=== PATIENT | female | born 1980 | race African-American/Black ===

== ENCOUNTER 2019-07-15 07:22 | Inpatient (IN) | payer BC ==
[2019-07-15] MEDS ORDERED: MORPHINE SULFATE 10 MG/ML INJ IV ONE ×2 (07:40→09:48)
[2019-07-15] MEDS ORDERED: NORMAL SALINE 1000 ML 1,000 ML IV ONE (07:40)
[2019-07-15 08:08] LABS: ABSOLUTE LYMPHOCYTES (AUTO) 0.8 10^3/uL (0.5-4.7); ABSOLUTE MONOCYTES (AUTO) 0.3 10^3/uL (0.1-1.4); ABSOLUTE NEUT (AUTO) 5.7 10^3/uL (1.7-8.2); BASOPHILS % (AUTO) 0.5 % (0-2); EOSINOPHILS % (AUTO) 0.5 % (0-6); HEMATOCRIT 40.1 % (36.0-47.0); HEMOGLOBIN 13.4 g/dL (12.0-15.5); LYMPHOCYTES % (AUTO) 11.8 % (13-45); MEAN CORPUSCULAR HEMOGLOBIN 26.7 pg (27.0-33.4); MEAN CORPUSCULAR HGB CONC 33.4 g/dL (32.0-36.0); MEAN CORPUSCULAR VOLUME 80 fl (80-97); MONOCYTES % (AUTO) 4.9 % (3-13); PLATELET COUNT 309 10^3/uL (150-450); RED BLOOD COUNT 5.02 10^6/uL (3.72-5.28); RED CELL DISTRIBUTION WIDTH 16.7 % (11.5-14.0); SEGMENTED NEUTROPHILS % (AUTO) 82.3 % (42-78); TOTAL CELLS COUNTED % (AUTO) 100 %
[2019-07-15 08:10] LABS: ALBUMIN 4.3 g/dL (3.5-5.0); ALKALINE PHOSPHATASE 123 U/L (38-126); ANION GAP 6 (5-19); APPEARANCE,URINE CLEAR; ASPARTATE AMINO TRANSFERASE 615 U/L (14-36); BILIRUBIN,DIRECT 1.7 mg/dL (0.0-0.4); BILIRUBIN,TOTAL 2.5 mg/dL (0.2-1.3); BILIRUBIN,URINE NEGATIVE (NEGATIVE); BLOOD UREA NITROGEN 11 mg/dL (7-20); CALCIUM 9.6 mg/dL (8.4-10.2); CARBON DIOXIDE 29 mmol/L (22-30); CHLORIDE 101 mmol/L (98-107); COLOR,URINE YELLOW; GLUCOSE 216 mg/dL (75-110); GLUCOSE, URINE 50 mg/dL (NEGATIVE); KETONES,URINE NEGATIVE (NEGATIVE); POTASSIUM 4.2 mmol/L (3.6-5.0); PROTEIN,URINE NEGATIVE (NEGATIVE); TOTAL PROTEIN 7.7 g/dL (6.3-8.2); URINE SPECIFIC GRAVITY 1.009; UROBILINOGEN,URINE NEGATIVE mg/dL (<2.0)
--- NOTE | 2019-07-15 08:17 | EKG REPORT ---
SEVERITY:- ABNORMAL ECG - SINUS TACHYCARDIA LEFT VENTRICULAR HYPERTROPHY : Confirmed by: Angelina Sanabria MD 15-Jul-2019 08:16:55
--- NOTE | 2019-07-15 09:34 | RADIOLOGY REPORT (SQ) ---
EXAM DESCRIPTION: CT ABD/PELVIS WITH IV ONLY IMAGES COMPLETED DATE/TIME: 07/15/2019 9:13 am REASON FOR STUDY: severe abd pain COMPARISON: None. TECHNIQUE: CT scan of the abdomen and pelvis performed using helical scanning technique with dynamic intravenous contrast injection. No oral contrast. Images reviewed with lung, soft tissue, and bone windows. Reconstructed coronal and sagittal MPR images reviewed. Delayed images for evaluation of the urinary system also acquired. All images stored on PACS. All CT scanners at this facility use dose modulation, iterative reconstruction, and/or weight based d osing when appropriate to reduce radiation dose to as low as reasonably achievable (ALARA). [facility]: Dose Right [facility]: CareDose [facility]: Dose Right [facility]: Teradose 4D [facility]: Who Can Fix My Car CONTRAST TYPE AND DOSE: contrast/concentration: Isovue 350.00 mg/ml; Total Contrast Delivered: 100.0 ml; Total Saline Delivered: 64.3 ml RENAL FUNCTION: GFR > 60. RADIATION DOSE: CT Rad equipment meets quality standard of care and radiation dose reduction techniq ues were employed. CTDIvol: 19.2 - 21.1 mGy. DLP: 2379 mGy-cm.. LIMITATIONS: None. FINDINGS: LOWER CHEST: Hiatal hernia. LIVER: Normal size. No masses. No dilated ducts. SPLEEN: Normal size. No focal lesions. PANCREAS: Subtle stranding of peripancreatic fat. No mass or ductal dilatation identified. GALLBLADDER: No identified stones by CT criteria. No inflammatory changes to suggest cholecystitis. ADRENAL GLANDS: No significant masses or asymmetry. RIGHT KIDNEY AND URETER: No solid masses. No significant calcifications. No hydronephrosis or hyd roureter. LEFT KIDNEY AND URETER: No solid masses. No significant calcifications. No hydronephrosis or hydr oureter. AORTA AND VESSELS: No aneurysm. No dissection. Renal arteries, SMA, celiac without stenosis. RETROPERITONEUM: No retroperitoneal adenopathy, hemorrhage or masses. BOWEL AND PERITONEAL CAVITY: No masses or inflammatory changes. No free fluid or peritoneal masses. APPENDIX: Normal. PELVIS: No mass. No free fluid. Normal bladder. ABDOMINAL WALL: Small fat containing umbilical hernia. BONES: No significant or acute findings. OTHER: No other significant finding. IMPRESSION: Acute pancreatitis. Correlation with serum chemistries is recommended. TECHNICAL DOCUMENTATION: JOB ID: [id number] Quality ID # [id number]: Final reports with documentation of one or more dose reduction techniques (e.g., Au tomated exposure control, adjustment of the mA and/or kV according to patient size, use of iterative reconstruction technique) 2010 [employer]- All Rights Reserved Reading location - IP/workstation name: [email or web address]
[2019-07-15] MEDS ORDERED: SUCCINYLCHOLINE CHLORIDE INJ 200 MG/10 ML VIAL ONE (09:49)
[2019-07-15] MEDS ORDERED: GLYCOPYRROLATE 1 MG/5 ML VIAL ONE (09:49)
[2019-07-15] MEDS ORDERED: ROCURONIUM BROMIDE INJ 50 MG/5 ML VIAL IV ONE (09:49)
[2019-07-15] MEDS ORDERED: NEOSTIGMINE METHYLSULFATE 10 MG/10 ML VIAL ONE (09:49)
--- NOTE | 2019-07-15 09:57 | ER Document Report ---
ED General - General Chief Complaint: Nausea/Vomiting Stated Complaint: NAUSEA/VOMTING Time Seen by Provider: 07/15/19 07:35 Primary Care Provider: KRYSTEL LION PA-C [Primary Care Provider] - Follow up as needed TRAVEL OUTSIDE OF THE [place] IN LAST 30 DAYS: No - HPI Notes: Patient presents with severe epigastric pain. She states this started yesterday. It started suddenly. This progressed to become worse. It is severe and radiates to her back. Has a burning sensation. She is also multiple episodes of vomiting. She does feels mildly short of breath. The pain also radiates up into her chest. The pain is become constant. No diarrhea. No problems with urination. She denies alcohol use. No new medications. - Related Data Allergies/Adverse Reactions: No Known Allergies Allergy (Verified 11/13/14 23:01) Past Medical History - General Information source: Patient - Social History Smoking Status: Never Smoker Frequency of alcohol use: None Drug Abuse: None Family History: Reviewed & Not Pertinent Patient has homicidal ideation: No Past Surgical History: Reports: Hx Orthopedic Surgery - bilateral hips, carpel tunnel, Hx Tonsillectomy - Immunizations Hx Diphtheria, Pertussis, Tetanus Vaccination: Yes Review of Systems - Review of Systems Constitutional: denies: Chills, Fever Cardiovascular: Chest pain. denies: Palpitations Respiratory: Short of breath. denies: Cough -: Yes All other systems reviewed and negative Physical Exam - Vital signs Vitals: Temp 98.2 F 07/15/19 07:40 Interpretation: Normal - General General appearance: Alert, Other - Appears uncomfortable and in pain - HEENT Head: Normocephalic, Atraumatic Eyes: Normal Pupils: PERRL - Respiratory Respiratory status: No respiratory distress Chest status: Nontender Breath sounds: Normal Chest palpation: Normal - Cardiovascular Rhythm: Tachycardia Heart sounds: Normal auscultation Murmur: No - Abdominal Inspection: Obese Distension: No distension Bowel sounds: Hypoactive Tenderness: Tender - Epigastric without rebound or guarding Organomegaly: No organomegaly - Back Back: Normal, Nontender - Extremities General upper extremity: Normal inspection, Nontender, Normal color, Normal ROM, Normal temperature General lower extremity: Normal inspection, Nontender, Normal color, Normal ROM, Normal temperature, Normal weight bearing. No: Elise's sign - Neurological Neuro grossly intact: Yes Cognition: Normal Orientation: AAOx4 Tarsha Coma Scale Eye Opening: Spontaneous [place] Coma Scale Verbal: Oriented T[place]ha Coma Scale Motor: Obeys Commands Tarsha Coma Scale Total: 15 Speech: Normal Motor strength normal: LUE, RUE, LLE, RLE Sensory: Normal - Psychological Associated symptoms: Normal affect, Normal mood - Skin Skin Temperature: Warm Skin Moisture: Dry Skin Color: Normal Course - Re-evaluation Re-evalutation: 07/15/19 09:54 Patient presents with severe epigastric pain and has pancreatitis by laboratory and CT exam. She will be admitted for further evaluation by hospitalist. - Vital Signs Vital signs: Temp Pulse Resp BP Pulse Ox 98.2 F 07/15/19 07:40 - Laboratory Result Diagrams: 07/15/19 07:35 07/15/19 07:35 Laboratory results interpreted by me: 07/15/19 07/15/19 07/15/19 07:35 07:35 07:35 MCH 26.7 L RDW 16.7 H Lymph % (Auto) 11.8 L Seg Neutrophils % 82.3 H Sodium 136.1 L Glucose 216 H Total Bilirubin 2.5 H Direct Bilirubin 1.7 H AST 615 H ALT 532 H Lipase 80038.7 H Urine Glucose (UA) 50 H - Diagnostic Test Radiology reviewed: Image reviewed, Reports reviewed - EKG Interpretation by Me EKG shows normal: Sinus rhythm Rate: Normal - 101 Rhythm: NSR [place]/QRS: No: Right axis deviation, Left axis deviation Discharge - Discharge Clinical Impression: Pancreatitis Condition: Serious Disposition: ADMITTED INPATIENT Admitting Provider: Nahomy (Hospitalist) Unit Admitted: Medical Floor Referrals: KRYSTLE LION PA-C [Primary Care Provider] - Follow up as needed
[2019-07-15] MEDS ORDERED: TEMAZEPAM 7.5 MG CAPSULE PO PRN (10:23)
[2019-07-15] MEDS ORDERED: IPRATROPIUM/ALBUTEROL 0.5-2.5 MG/3 ML AMPUL NEB PRN (10:23)
[2019-07-15] MEDS ORDERED: ACETAMINOPHEN 325 MG TABLET PO PRN (10:23)
--- NOTE | 2019-07-15 10:34 | PDOC H&P ---
History of Present Illness Admission Date/PCP: KRYSTLE LION PA-C Patient complains of: Abdominal pain, nausea and vomiting History of Present Illness: MORRIS JAIME is a 38 year old female Who presents with acute onset of abdominal pain associated with nausea and vomiting. This pain started yesterday. She denied any prior episode of such pain. She denies any dysuria frequency fever diarrhea or any other pertinent symptoms. Patient denies any alcohol use, drug use and she denies any prior episodes of pancreatitis. The emergency room she was found to have a lipase of 24,000. Is on no medications. She is morbidly obese but otherwise denies any other medical history. CT scan of the abdomen done reveals findings consistent with pancreatitis. She ultimately had an abdominal sonogram done and at this is consistent with cholelithiasis. Past Medical History Medical History: None Past Surgical History Past Surgical History: Reports: Orthopedic Surgery - bilateral hips, carpel tunnel, Tonsillectomy Social History Information Source: Patient Smoking Status: Never Smoker - Advance Directive Resuscitation Status: Full Code Family History Family History: Reviewed & Not Pertinent Parental Family History Reviewed: Yes Children Family History Reviewed: Yes Sibling(s) Family History Reviewed.: Yes Medication/Allergy Home Medications: No Home Medications 11/13/14 Allergies/Adverse Reactions: amoxicillin Allergy (Verified 07/15/19 16:35) Penicillins Allergy (Verified 07/15/19 16:35) Review of Systems All systems: reviewed and no additional remarkable complaints except as stated Gastrointestinal: PRESENT: abdominal pain Physical Exam Vital Signs: Temp Pulse Resp BP Pulse Ox 98.2 F 07/15/19 07:40 Intake & Output 07/14/19 07/15/19 07/16/19 06:59 06:59 06:59 Intake Total 1000 Balance 1000 Weight 172.365 kg General appearance: PRESENT: no acute distress, morbidly obese, well-developed, well-nourished Head exam: PRESENT: atraumatic, normocephalic Eye exam: PRESENT: conjunctiva pink, EOMI, PERRLA. ABSENT: scleral icterus Ear exam: PRESENT: normal external ear exam Mouth exam: PRESENT: moist, tongue midline Neck exam: ABSENT: carotid bruit, JVD, lymphadenopathy, thyromegaly Respiratory exam: PRESENT: clear to auscultation aryan. ABSENT: rales, rhonchi, wheezes Cardiovascular exam: PRESENT: RRR, +S1, +S2. ABSENT: diastolic murmur, rubs, systolic murmur Pulses: PRESENT: normal dorsalis pedis pul Vascular exam: PRESENT: normal capillary refill GI/Abdominal exam: PRESENT: normal bowel sounds, soft, tenderness. ABSENT: distended, guarding, mass, organolmegaly, rebound Rectal exam: PRESENT: deferred Extremities exam: PRESENT: full ROM. ABSENT: calf tenderness, clubbing, pedal edema Neurological exam: PRESENT: alert, awake, oriented to person, oriented to place, oriented to time, oriented to situation, CN II-XII grossly intact. ABSENT: motor sensory deficit Psychiatric exam: PRESENT: appropriate affect, normal mood. ABSENT: homicidal ideation, suicidal ideation Skin exam: PRESENT: dry, intact, warm. ABSENT: cyanosis, rash Results Laboratory Results: 07/15/19 07:35 07/15/19 07:35 07/15/19 07/15/19 07/15/19 07:35 07:35 07:35 WBC 7.0 RBC 5.02 Hgb 13.4 Hct 40.1 MCV 80 MCH 26.7 L MCHC 33.4 RDW 16.7 H Plt Count 309 Seg Neutrophils % 82.3 H Sodium 136.1 L Potassium 4.2 Chloride 101 Carbon Dioxide 29 Anion Gap 6 BUN 11 Creatinine 0.85 Est GFR ( Amer) > 60 Glucose 216 H Calcium 9.6 Total Bilirubin 2.5 H AST 615 H Alkaline Phosphatase 123 Total Protein 7.7 Albumin 4.3 Lipase 12475.7 H Urine Color YELLOW Urine Appearance CLEAR Urine pH 8.0 Ur Specific [place] 1.009 Urine Protein NEGATIVE Urine Glucose (UA) 50 H Urine Ketones NEGATIVE Urine Blood NEGATIVE Urine RBC (Auto) 1 07/15/19 07:35 Troponin I < 0.012 Impressions: Abdomen/Pelvis CT 07/15/19 07:39 IMPRESSION: Acute pancreatitis. Correlation with serum chemistries is recommended. Assessment and Plan - Diagnosis (1) Acute gallstone pancreatitis Is this a current diagnosis for this admission?: Yes Plan: Patient does have cholelithiasis on sonogram. This may be the cause of pancre atitis. She likely will need an MRI for further evaluation. I will also consult surgery. Patient will be kept n.p.o. She will be placed on IV fluids as well as PPI intravenously. Will monitor for follow her labs (2) Hyperglycemia Is this a current diagnosis for this admission?: Yes Plan: Denies prior history of diabetes although her blood sugar was elevated at 200. Will check hemoglobin A1c (3) Morbid obesity with BMI of 50.0-59.9, adult Is this a current diagnosis for this admission?: Yes Plan: She has been advised on the need to lose weight - Time Time Spent with patient: 25-34 minutes Anticipated discharge: Home - Inpatient Certification Based on my medical assessment, after consideration of the patient's comorbidities, presenting symptoms, or acuity I expect that the services needed warrant INPATIENT care.: Yes Medical Necessity: Risk of Complication if Not Cared For in Hospital, Risk of Diagnosis Which Will Require Inpatient Eval/Care/Monitoring
--- NOTE | 2019-07-15 11:07 | RADIOLOGY REPORT (SQ) ---
EXAM DESCRIPTION: U/S ABDOMEN LIMITED W/O DOP IMAGES COMPLETED DATE/TIME: 07/15/2019 10:45 am REASON FOR STUDY: epi jerry/pancreatitis COMPARISON: None. TECHNIQUE: Dynamic and static grayscale images acquired of the abdomen and recorded on PACS. Additio nal selected color Doppler and spectral images recorded. LIMITATIONS: Limited visualization. Poor acoustical window FINDINGS: PANCREAS: No masses. Visualized pancreatic duct normal caliber. LIVER: Normal size Mild fatty infiltration. No focal masses. LIVER VASCULATURE: Normal directional flow of the main portal vein and hepatic veins. GALLBLADDER: Gallstone(s). No pericholecystic fluid. No wall thickening. ULTRASOUND-DETECTED FERRARO'S SIGN: Negative. INTRAHEPATIC DUCTS AND COMMON DUCT: CBD and intrahepatic ducts normal caliber. No filling defects. INFERIOR VENA CAVA: Normal flow. AORTA: No aneurysm. RIGHT KIDNEY: Normal size. Normal echogenicity. No solid or suspicious masses. No hydronephros is. No calcifications. PERITONEAL AND RIGHT PLEURAL SPACE: No ascites or effusions. OTHER: No other significant findings. IMPRESSION: Cholelithiasis. No evidence of acute cholecystitis. TECHNICAL DOCUMENTATION: JOB ID: [id number] 2010 [employer]- All Rights Reserved Reading location - IP/workstation name: [email or web address]
[2019-07-15] MEDS: OXYCODONE-ACETAMINOPHEN 5-325 MG TABLET PO PRN ×2 (11:09→19:54)
[2019-07-15] MEDS: NORMAL SALINE 1000 ML 1,000 ML IV PRN ×2 (11:10→19:59)
[2019-07-15] MEDS: PANTOPRAZOLE SODIUM 40 MG VIAL IV SCH (11:10)
[2019-07-15 11:12] LABS: URINE AMPHETAMINES SCREEN NEGATIVE; URINE BARBITURATES SCREEN NEGATIVE; URINE BENZODIAZEPINES SCREEN NEGATIVE; URINE COCAINE SCREEN NEGATIVE; URINE MARIJUANA (THC) SCREEN NEGATIVE; URINE METHADONE SCREEN NEGATIVE; URINE PHENCYCLIDINE SCREEN NEGATIVE
[2019-07-15] MEDS: ONDANSETRON HCL INJ/PF 4 MG/2 ML SDV IV PRN ×3 (12:49→21:04)
--- NOTE | 2019-07-15 20:06 | RADIOLOGY REPORT (SQ) ---
EXAM DESCRIPTION: MRI ABDOMEN WITHOUT IMAGES COMPLETED DATE/TIME: 07/15/2019 6:42 pm REASON FOR STUDY: Abdominal pain, Gallstone Pancreatitis COMPARISON: Abdominal ultrasound same date. CT abdomen and pelvis same date. TECHNIQUE: Noncontrast MRCP. Source and MIP images reviewed. LIMITATIONS: None. FINDINGS: GALLBLADDER: The gallbladder has normal contour and appearance. There are gallstones with in the gallbladder lumen. No gallbladder wall thickening or pericholecystic fluid. INTRAHEPATIC DUCTS: Nondilated. EXTRAHEPATIC DUCTS: Common duct is normal caliber. No dilatation of the pancreatic duct. No ductal filling defects noted. PANCREAS: Generally homogeneous, no gross mass or significant signal alteration. Mild diffuse enlarg ement with mild surrounding inflammatory changes. No focal fluid collection. Pancreatic duct is norm al. LIVER, SPLEEN, KIDNEYS, ADRENALS: Mild hepatic steatosis. No focal hepatic mass. Kidneys have lana l size and position. No hydronephrosis. No perinephric fluid. No adrenal mass. VESSELS: No evidence of aneurysm. Grossly appropriate flow voids in the major vascular structures. LUNG BASES: Grossly clear. OTHER: No other significant finding. IMPRESSION: 1. Mild acute pancreatitis. No focal pseudocyst. No pancreatic ductal dilation. 2. Cholelithiasis. No evidence of acute cholecystitis or choledocholithiasis. 3. Mild hepatic steatosis. TECHNICAL DOCUMENTATION: JOB ID: [id number] [employer]- All Rights Reserved Reading location - IP/workstation name: [email or web address]
[2019-07-16] MEDS: MORPHINE SULFATE 10 MG/ML INJ IV PRN ×4 (00:17→21:56)
--- NOTE | 2019-07-16 06:50 | PDOC CONSULTATION ---
Consultation Consult Date: 07/16/19 Provider Consulted: SURGICAL SURGICALIST Consult reason:: pancreatitis History of Present Illness Admission Date/PCP: 07/15/19 11:46 KRYSTLE LION PA-C History of Present Illness: MORRIS JAIME is a 38 year old female seen in consultation at the request of the hospitalist service. The patient reports a one-week history of abdominal discomfort, nausea, vomiting, extremity swelling, and "indigestion with everything I eat". She has never had any symptoms like this before. She does not drink alcohol. She presented to the emergency room where she was found to have hyperbilirubinemia, elevated amylase and lipase, stones and sludge within her gallbladder, and peripancreatic stranding on CT. She reports her pain was 8 out of 10 at its worst. Eating makes it worse. Nothing makes it better. Her pain radiated to her back. It was sharp and stabbing in nature. It is improved since admission to the hospital. The patient denies cough, fevers, chills, chest pain, shortness of breath, dizziness, headache, orthostasis, muscle aches, malaise, fatigue, melena, hematochezia, hematemesis. Past Medical History Endocrine Medical History: Reports: Obesity Past Surgical History Past Surgical History: Reports: Orthopedic Surgery - bilateral hips, carpel tunnel, Tonsillectomy Social History Smoking Status: Never Smoker Electronic Cigarette use?: No Frequency of Alcohol Use: None Hx Recreational Drug Use: No Drugs: None Hx Prescription Drug Abuse: No - Advance Directive Resuscitation Status: Full Code Family History Family History: Reviewed & Not Pertinent Parental Family History Reviewed: Yes Children Family History Reviewed: Yes Sibling(s) Family History Reviewed.: Yes Medication/Allergy Home Medications: No Home Medications 11/13/14 Allergies/Adverse Reactions: amoxicillin Allergy (Verified 07/15/19 16:35) Penicillins Allergy (Verified 07/15/19 16:35) Review of Systems Constitutional: ABSENT: anorexia, chills, fatigue, fever(s), headache(s) Eyes: ABSENT: visual disturbances Ears: ABSENT: hearing changes Nose, Mouth, and Throat: ABSENT: sore throat Cardiovascular: ABSENT: chest pain Respiratory: ABSENT: cough Gastrointestinal: PRESENT: abdominal pain, nausea, vomiting. ABSENT: hematemesis, hematochezia, melena Genitourinary: ABSENT: dysuria Musculoskeletal: ABSENT: back pain Integumentary: ABSENT: pruritus, rash Neurological: ABSENT: confusion, convulsions, dizziness Psychiatric: ABSENT: anxiety, depression Endocrine: ABSENT: cold intolerance, heat intolerance Hematologic/Lymphatic: ABSENT: easy bleeding, easy bruising Physical Exam Vital Signs: Temp Pulse Resp BP Pulse Ox 97.9 F 100 17 156/82 H 96 07/16/19 03:36 07/16/19 03:36 07/16/19 03:36 07/16/19 03:36 07/16/19 03:36 Intake & Output 07/14/19 07/15/19 07/16/19 06:59 06:59 06:59 Intake Total 1999 Balance 1999 Weight 172.365 kg General appearance: PRESENT: no acute distress, morbidly obese Head exam: PRESENT: atraumatic, normocephalic Eye exam: PRESENT: EOMI, PERRLA. ABSENT: scleral icterus Mouth exam: PRESENT: moist, neck supple Neck exam: ABSENT: meningismus, tenderness, thyromegaly, tracheal deviation Respiratory exam: PRESENT: unlabored. ABSENT: tachypnea, wheezes Cardiovascular exam: ABSENT: tachycardia Pulses: PRESENT: normal radial pulses Vascular exam: PRESENT: normal capillary refill GI/Abdominal exam: PRESENT: soft. ABSENT: distended, tenderness Rectal exam: PRESENT: deferred Extremities exam: ABSENT: clubbing Musculoskeletal exam: ABSENT: deformity Neurological exam: PRESENT: alert, awake, oriented to person, oriented to place, oriented to time, oriented to situation, CN II-XII grossly intact. ABSENT: motor sensory deficit Psychiatric exam: ABSENT: agitated, anxious Focused psych exam: ABSENT: delusional Skin exam: ABSENT: cyanosis, erythema, jaundice Results Laboratory Results: 07/15/19 07:35 07/15/19 07:35 07/15/19 07/15/19 07/15/19 07:35 07:35 07:35 WBC 7.0 RBC 5.02 Hgb 13.4 Hct 40.1 MCV 80 MCH 26.7 L MCHC 33.4 RDW 16.7 H Plt Count 309 Seg Neutrophils % 82.3 H Sodium 136.1 L Potassium 4.2 Chloride 101 Carbon Dioxide 29 Anion Gap 6 BUN 11 Creatinine 0.85 Est GFR ( Amer) > 60 Glucose 216 H Calcium 9.6 Total Bilirubin 2.5 H AST 615 H Alkaline Phosphatase 123 Total Protein 7.7 Albumin 4.3 Lipase 13377.7 H Urine Color YELLOW Urine Appearance CLEAR Urine pH 8.0 Ur Specific [place] 1.009 Urine Protein NEGATIVE Urine Glucose (UA) 50 H Urine Ketones NEGATIVE Urine Blood NEGATIVE Urine RBC (Auto) 1 07/15/19 07:35 Troponin I < 0.012 Impressions: Abdomen MRI 07/15/19 00:00 IMPRESSION: 1. Mild acute pancreatitis. No focal pseudocyst. No pancreatic ductal dilation. 2. Cholelithiasis. No evidence of acute cholecystitis or choledocholithiasis. 3. Mild hepatic steatosis. Abdomen/Pelvis CT 07/15/19 07:39 IMPRESSION: Acute pancreatitis. Correlation with serum chemistries is recommended. Abdomen Ultrasound 07/15/19 08:56 IMPRESSION: Cholelithiasis. No evidence of acute cholecystitis. Assessment & Plan - Diagnosis (1) Acute gallstone pancreatitis Is this a current diagnosis for this admission?: Yes - Plan Summary Plan Summary: This is a 38-year-old female with gallstone pancreatitis. I have reviewed her CT scan, ultrasound, and lab work. Her pain seems to be controlled. She is receiving IV hydration. Continue n.p.o. status. Repeat labs today. As soon as a plateau or decrease in her lipase levels are noted, the patient should undergo cholecystectomy. This will prevent any future episodes of biliary pancreatitis. This has been discussed with her at length. Risks/benefits discussed, informed consent obtained, and all questions answered.
[2019-07-16 06:52] LABS: ABSOLUTE MONOCYTES (AUTO) 0.6 10^3/uL (0.1-1.4); ABSOLUTE NEUT (AUTO) 5.3 10^3/uL (1.7-8.2); BASOPHILS % (AUTO) 0.2 % (0-2); EOSINOPHILS % (AUTO) 0.4 % (0-6); HEMATOCRIT 35.3 % (36.0-47.0); LYMPHOCYTES % (AUTO) 14.2 % (13-45); MEAN CORPUSCULAR HEMOGLOBIN 27.2 pg (27.0-33.4); MEAN CORPUSCULAR HGB CONC 34.1 g/dL (32.0-36.0); MEAN CORPUSCULAR VOLUME 80 fl (80-97); MONOCYTES % (AUTO) 8.5 % (3-13); PLATELET COUNT 262 10^3/uL (150-450); RED BLOOD COUNT 4.42 10^6/uL (3.72-5.28); RED CELL DISTRIBUTION WIDTH 17.2 % (11.5-14.0); SEGMENTED NEUTROPHILS % (AUTO) 76.7 % (42-78); TOTAL CELLS COUNTED % (AUTO) 100 %; WHITE BLOOD COUNT 6.9 10^3/uL (4.0-10.5)
[2019-07-16] MEDS: NORMAL SALINE 1000 ML 1,000 ML IV PRN ×3 (07:03→22:01)
[2019-07-16 08:26] LABS: ALBUMIN 3.6 g/dL (3.5-5.0); ALKALINE PHOSPHATASE 134 U/L (38-126); AMYLASE 720 U/L (30-110); ANION GAP 5 (5-19); ASPARTATE AMINO TRANSFERASE 295 U/L (14-36); BILIRUBIN,DIRECT 0.5 mg/dL (0.0-0.4); BILIRUBIN,TOTAL 1.4 mg/dL (0.2-1.3); BLOOD UREA NITROGEN 12 mg/dL (7-20); CARBON DIOXIDE 28 mmol/L (22-30); CHLORIDE 103 mmol/L (98-107); CHOLESTEROL 162.58 mg/dL (0-200); GLUCOSE 125 mg/dL (75-110); POTASSIUM 3.7 mmol/L (3.6-5.0); TOTAL PROTEIN 6.9 g/dL (6.3-8.2); TRIGLYCERIDES 56 mg/dL (<150)
[2019-07-16 08:37] LABS: DIRECT LDL 82 mg/dL (<100)
--- NOTE | 2019-07-16 10:44 | PDOC PROGRESS REPORT ---
Subjective Progress Note for:: 07/16/19 Subjective:: feels better less abd pain Reason For Visit: ACUTE PANCREATITIS Physical Exam Vital Signs: Temp Pulse Resp BP Pulse Ox 98.3 F 99 18 145/80 H 99 07/16/19 08:10 07/16/19 08:10 07/16/19 08:10 07/16/19 08:10 07/16/19 08:10 Intake & Output 07/15/19 07/16/19 07/17/19 06:59 06:59 06:59 Intake Total 3000 Balance 3000 Weight 172.365 kg 172.365 kg General appearance: PRESENT: no acute distress Head exam: PRESENT: normocephalic Eye exam: PRESENT: EOMI Ear exam: PRESENT: normal external ear exam Mouth exam: PRESENT: moist Neck exam: PRESENT: full ROM Respiratory exam: PRESENT: clear to auscultation aryan Cardiovascular exam: PRESENT: RRR Pulses: PRESENT: normal femoral pulses, normal dorsalis pedis pul Vascular exam: PRESENT: normal capillary refill Breast: PRESENT: Normal GI/Abdominal exam: PRESENT: soft Rectal exam: PRESENT: deferred Extremities exam: PRESENT: full ROM Musculoskeletal exam: PRESENT: ambulatory Neurological exam: PRESENT: alert, awake, oriented to person Psychiatric exam: PRESENT: appropriate affect Skin exam: PRESENT: dry Results Laboratory Results: 07/16/19 06:32 07/16/19 06:32 07/16/19 07/16/19 06:32 06:32 WBC 6.9 RBC 4.42 Hgb 12.0 Hct 35.3 L MCV 80 MCH 27.2 MCHC 34.1 RDW 17.2 H Plt Count 262 Seg Neutrophils % 76.7 Sodium 135.6 L Potassium 3.7 Chloride 103 Carbon Dioxide 28 Anion Gap 5 BUN 12 Creatinine 0.88 Est GFR ( Amer) > 60 Glucose 125 H Calcium 9.0 Magnesium 2.0 Total Bilirubin 1.4 H AST 295 H Alkaline Phosphatase 134 H Total Protein 6.9 Albumin 3.6 Triglycerides 56 Cholesterol 162.58 LDL Cholesterol Direct 82 VLDL Cholesterol 11.0 HDL Cholesterol 67 Amylase 720 H Lipase 3916.8 H 07/15/19 07:35 Troponin I < 0.012 Impressions: Abdomen MRI 07/15/19 00:00 IMPRESSION: 1. Mild acute pancreatitis. No focal pseudocyst. No pancreatic ductal dilation. 2. Cholelithiasis. No evidence of acute cholecystitis or choledocholithiasis. 3. Mild hepatic steatosis. Abdomen/Pelvis CT 07/15/19 07:39 IMPRESSION: Acute pancreatitis. Correlation with serum chemistries is recommended. Abdomen Ultrasound 07/15/19 08:56 IMPRESSION: Cholelithiasis. No evidence of acute cholecystitis. Assessment & Plan - Plan Summary Plan Summary: gallstone pancreatits lipase decreasing pain improved mrcp neg for stones in duct will schedule for lap jethro.
[2019-07-16] MEDS: PANTOPRAZOLE SODIUM 40 MG VIAL IV SCH (10:52)
--- NOTE | 2019-07-16 11:51 | PDOC PROGRESS REPORT ---
Subjective Progress Note for:: 07/16/19 Subjective:: Patient feels better. Days much less abdominal pain. Lipase is decreased from 24,008 33-3916. LFTs are also improved. Patient did have cholelithiasis and she has been seen by surgery with plans for cholecystectomy. MRCP reveals no stone in duct. Reason For Visit: ACUTE PANCREATITIS Physical Exam Vital Signs: Temp Pulse Resp BP Pulse Ox 98.0 F 103 H 16 137/67 H 98 07/16/19 11:34 07/16/19 11:34 07/16/19 11:34 07/16/19 11:34 07/16/19 11:34 Intake & Output 07/15/19 07/16/19 07/17/19 06:59 06:59 06:59 Intake Total 3000 Balance 3000 Weight 172.365 kg 172.365 kg General appearance: PRESENT: no acute distress, morbidly obese, well-developed, well-nourished Head exam: PRESENT: atraumatic, normocephalic Eye exam: PRESENT: conjunctiva pink, EOMI, PERRLA. ABSENT: scleral icterus Ear exam: PRESENT: normal external ear exam Mouth exam: PRESENT: moist, tongue midline Neck exam: ABSENT: carotid bruit, JVD, lymphadenopathy, thyromegaly Respiratory exam: PRESENT: clear to auscultation aryan. ABSENT: rales, rhonchi, wheezes Cardiovascular exam: PRESENT: RRR. ABSENT: diastolic murmur, rubs, systolic murmur Pulses: PRESENT: normal dorsalis pedis pul Vascular exam: PRESENT: normal capillary refill GI/Abdominal exam: PRESENT: normal bowel sounds, soft, tenderness, other. ABSENT: distended, guarding, mass, organolmegaly, rebound Rectal exam: PRESENT: deferred Extremities exam: PRESENT: full ROM. ABSENT: calf tenderness, clubbing, pedal edema Neurological exam: PRESENT: alert, awake, oriented to person, oriented to place, oriented to time, oriented to situation, CN II-XII grossly intact. ABSENT: motor sensory deficit Psychiatric exam: PRESENT: appropriate affect, normal mood. ABSENT: homicidal ideation, suicidal ideation Skin exam: PRESENT: dry, intact, warm. ABSENT: cyanosis, rash Results Laboratory Results: 07/16/19 06:32 07/16/19 06:32 07/16/19 07/16/19 06:32 06:32 WBC 6.9 RBC 4.42 Hgb 12.0 Hct 35.3 L MCV 80 MCH 27.2 MCHC 34.1 RDW 17.2 H Plt Count 262 Seg Neutrophils % 76.7 Sodium 135.6 L Potassium 3.7 Chloride 103 Carbon Dioxide 28 Anion Gap 5 BUN 12 Creatinine 0.88 Est GFR ( Amer) > 60 Glucose 125 H Calcium 9.0 Magnesium 2.0 Total Bilirubin 1.4 H AST 295 H Alkaline Phosphatase 134 H Total Protein 6.9 Albumin 3.6 Triglycerides 56 Cholesterol 162.58 LDL Cholesterol Direct 82 VLDL Cholesterol 11.0 HDL Cholesterol 67 Amylase 720 H Lipase 3916.8 H 07/15/19 07:35 Troponin I < 0.012 Impressions: Abdomen MRI 07/15/19 00:00 IMPRESSION: 1. Mild acute pancreatitis. No focal pseudocyst. No pancreatic ductal dilation. 2. Cholelithiasis. No evidence of acute cholecystitis or choledocholithiasis. 3. Mild hepatic steatosis. Abdomen/Pelvis CT 07/15/19 07:39 IMPRESSION: Acute pancreatitis. Correlation with serum chemistries is recommended. Abdomen Ultrasound 07/15/19 08:56 IMPRESSION: Cholelithiasis. No evidence of acute cholecystitis. Assessment and Plan - Diagnosis (1) Acute gallstone pancreatitis Is this a current diagnosis for this admission?: Yes (2) Hyperglycemia Is this a current diagnosis for this admission?: Yes (3) Morbid obesity with BMI of 50.0-59.9, adult Is this a current diagnosis for this admission?: Yes - Plan Summary Summary: Follow-up on labs as indicated . plan is for OR for cholecystectomy as per surgery. We will keep patient n.p.o. - Inpatient Certification Based on my medical assessment, after consideration of the patient's comorbidities, presenting symptoms, or acuity I expect that the services needed warrant INPATIENT care.: Yes Medical Necessity: Need for Surgery
[2019-07-16] MEDS: OXYCODONE-ACETAMINOPHEN 5-325 MG TABLET PO PRN (20:14)
[2019-07-17] MEDS: ONDANSETRON HCL INJ/PF 4 MG/2 ML SDV IV PRN ×2 (00:53→13:43)
[2019-07-17] MEDS: NORMAL SALINE 1000 ML 1,000 ML IV PRN ×2 (06:15→13:41)
[2019-07-17] MEDS ORDERED: HYDRALAZINE HCL INJ/PF 20 MG/1 ML SDV IV ONE (08:30)
[2019-07-17] MEDS: MORPHINE SULFATE 10 MG/ML INJ IV PRN (08:30)
[2019-07-17] MEDS ORDERED: KETOROLAC TROMETHAMINE 60 MG/2 ML SDV ONE (08:43)
[2019-07-17] MEDS ORDERED: PROPOFOL INJ 200 MG/20 ML VIAL IV ONE (08:44)
[2019-07-17] MEDS ORDERED: HYDROMORPHONE HCL INJ/PF 2 MG/ML AMPULE ONE (08:44)
[2019-07-17] MEDS ORDERED: MIDAZOLAM 2 MG/2 ML INJ ONE (08:44)
[2019-07-17] MEDS ORDERED: DEXAMETHASONE SOD PHOSPHATE INJ 4 MG/1 ML VIAL ONE (08:44)
[2019-07-17] MEDS ORDERED: FENTANYL CITRATE INJ/PF 100 MCG/2 ML AMPUL ONE (08:44)
[2019-07-17] MEDS ORDERED: ONDANSETRON HCL INJ/PF 4 MG/2 ML SDV ONE (08:44)
[2019-07-17] MEDS ORDERED: ACETAMINOPHEN 1,000 MG/100 ML RTUPB IV ONE (08:46)
[2019-07-17] MEDS ORDERED: BUPIVACAINE HCL 0.5%-EPI 1:200000 INJ/PF 30 ML VIAL ONE (09:22)
[2019-07-17] MEDS: PANTOPRAZOLE SODIUM 40 MG VIAL IV SCH (09:36)
[2019-07-17] MEDS ORDERED: METRONIDAZOLE 500 MG/NS RTU 500 MG/100 ML RTUPB IV ONE (09:48)
[2019-07-17] MEDS ORDERED: CEFAZOLIN INJ 1 GM VIAL ONE (09:48)
[2019-07-17] MEDS ORDERED: METOPROLOL TARTRATE PF/INJ 5 MG/5 ML SDV IV ONE (10:26)
[2019-07-17] MEDS ORDERED: MEPERIDINE HCL/PF INJ 25 MG/1 ML DISP.SYRIN IV PRN (11:10)
[2019-07-17] MEDS ORDERED: PROMETHAZINE HCL INJ 25 MG/1 ML VIAL IV PRN (11:10)
[2019-07-17] MEDS ORDERED: FENTANYL CITRATE INJ/PF 100 MCG/2 ML AMPUL IV PRN ×3 (11:10)
[2019-07-17] MEDS ORDERED: MORPHINE SULFATE 10 MG/ML INJ IV PRN (11:10)
[2019-07-17] MEDS ORDERED: ONDANSETRON HCL INJ/PF 4 MG/2 ML SDV IV PRN (11:10)
[2019-07-17] MEDS ORDERED: DIPHENHYDRAMINE HCL 50 MG/ML VIAL IV PRN (11:10)
--- NOTE | 2019-07-17 12:36 | RADIOLOGY REPORT (SQ) ---
EXAM DESCRIPTION: CHOLANGIOGRAM OPERATIVE IMAGES COMPLETED DATE/TIME: 07/17/2019 12:16 pm REASON FOR STUDY: LAP JOHN PAUL COMPARISON: None. FLUOROSCOPY TIME: 0.9 minutes 11 images saved to PACS. TECHNIQUE: 11 images were obtained from an intraoperative cholangiogram. LIMITATIONS: None. FINDINGS: There is opacification of the bile ducts, cystic duct remnants and second portion of the d uodenum. Small amount of extravasation noted about the liver. No definitive fixed filling defect id entified. Please see operative report for detailed description. IMPRESSION: INTRAOPERATIVE CHOLANGIOGRAM. COMMENT: Quality ID [id number]: Final reports for procedures using fluoroscopy that document radiation exp osure indices, or exposure time and number of fluorographic images (if radiation exposure indices are not available) TECHNICAL DOCUMENTATION: JOB ID: [id number] 2010 [employer]- All Rights Reserved Reading location - IP/workstation name: [email or web address]
--- NOTE | 2019-07-17 13:28 | Operative Report ---
Nonrecallable Operative Report DATE OF SURGERY: 07/17/19 PREOPERATIVE DIAGNOSIS: Cholelithiasis POSTOPERATIVE DIAGNOSIS: Cholelithiasis OPERATION: Upper scopic cholecystectomy with intraoperative cholangiograms SURGEON: DIEGO COX ANESTHESIA: GA TISSUE REMOVED OR ALTERED: Gallbladder COMPLICATIONS: None ESTIMATED BLOOD LOSS: 25 cc INTRAOPERATIVE FINDINGS: See note PROCEDURE: After obtaining informed consent, the patient was taken to the operating room. General Anesthesia was induced; the arms were extended, and the abdomen was exposed, and prepped and draped in a sterile fashion. Instrumentation was set up for laparoscopic cholecystectomy. Surgical plan and surgical timeout were conducted. A vertical incision was made above the umbilicus, and a verres needle was inserted uneventfully into the peritoneal cavity. Pneumoperitoneum was established. The verres needle was removed and a 10 mm trocar was inserted and a 10 mm laparoscope was inserted. Visualization of the peritoneal cavity confirmed safe uneventful entry. Under direct visualization 3 additional 5 mm ports were established, one in the subxiphoid position and second in the subcostal position. Visualization of the hepatobiliary anatomy revealed no anatomic variations. A grasper was placed on the fundus of the gallbladder and the gallbladder is elevated over the right surface of the liver; a second grasper was used to grasp the infundibulum of the gallbladder. The neck of the gallbladder and junction with the cystic duct was dissected out. The Cystic artery was in its usual location medial and cephalad to the cystic duct. The cystic artery was surrounded with a right angle clamp, clipped twice proximally and divided with laparoscopic scissors. We now opened the triangle of Calot by dividing the peritoneal reflection on both the medial and lateral sides of the cystic duct infundibular junction. The critical view was obtained. We now milked the cystic duct of any possible stones, clipped the cystic duct proximately .we then made a cystic ductotomy with the EndoShears and placed the cholangiogram catheter into the cystic duct and intraoperative cholangiogram was obtained which showed good flow into both the right and left hepatic radicles as well as into the duodenum there was no evidence of any retained stones the pancreatic duct incidentally did fill with contrast. We then clipped the cystic duct distally to times and and divided with scissors. The gallbladder was now removed from the undersurface of the liver using hook cautery dissection. Graspers were repositioned and the gallbladder was removed uneventfully from the abdominal cavity through the super umbilical port site incision. The specimen was examined, then passed off to pathology for permanent analysis. We returned to the peritoneal cavity check for bleeding, and evidence of bile leak, and there was none. We Confirmed satisfactory placement of clips on cystic duct and cystic artery were secured . At this point we felt the operation was complete. The subcutaneous tissue was then anesthetized with quarter percent Marcaine Sponge and needle counts are correct. All ports removed under direct visualization pneumoperitoneum evacuated, and 5 mm port wounds closed with 3-0 Vicryl suture, benzoin and Steri-Strips. The patient was extubated, and taken to the recovery room in stable condition.
[2019-07-17] MEDS ORDERED: ALBUTEROL SULFATE 0.042% NEB (1.25 MG/3 ML) AMPUL NEB PRN (14:35)
[2019-07-17] MEDS ORDERED: FUROSEMIDE INJ/PF 20 MG/2 ML SDV ONE (14:51)
--- NOTE | 2019-07-17 15:38 | RADIOLOGY REPORT (SQ) ---
EXAM DESCRIPTION: CHEST SINGLE VIEW IMAGES COMPLETED DATE/TIME: 07/17/2019 3:21 pm REASON FOR STUDY: shortness of breath, crackles bilaterally COMPARISON: None. EXAM PARAMETERS: NUMBER OF VIEWS: One view. TECHNIQUE: Single frontal radiographic view of the chest acquired. RADIATION DOSE: NA LIMITATIONS: None. FINDINGS: LUNGS AND PLEURA: Multifocal airspace disease within the left mid lower lung. No pleural effusion or pneumothorax. MEDIASTINUM AND HILAR STRUCTURES: No masses. Contour normal. HEART AND VASCULAR STRUCTURES: Heart normal in size. Normal vasculature. BONES: No acute findings. HARDWARE: None in the chest. OTHER: No other significant finding. IMPRESSION: Multifocal left mid and basilar airspace disease compatible with pneumonia. TECHNICAL DOCUMENTATION: JOB ID: [id number] 2010 [employer]- All Rights Reserved Reading location - IP/workstation name: [email or web address]
--- NOTE | 2019-07-17 16:15 | PDOC PROGRESS REPORT ---
Subjective Progress Note for:: 07/17/19 Subjective:: Called by nursing for patient having difficulties postop today with noted hypoxemia with respiratory failure, severe somnolence, and suspected hemoptysis. I came immediately to bedside and patient had spit some very light pink-tinged saliva onto a napkin but there was no overt yunior blood or hemoptysis that I observed. Likely this was from very mild trauma to her airway during intubation and extubation as would be expected. Her lungs may have had the faintest of crackles at the bases but there was no wheezing or rhonchi. Per nursing, patient had been given 1.5 L fluid intraoperatively and she still had IV fluids running in the room when I saw her. Discontinued IV fluids. Auscultatory exam was extremely limited due to massive body habitus. I reviewed the chest x-ray on the x-ray machine in the room immediately upon completion and noted she had some mediastinal and primarily left-sided infiltrates possibly volume overload. Patient given 20 mg IV Lasix once. It is possible she has developed a pneumonia but this would be strange to have occurred during this timeline of going to surgery normal and coming back with a lung infection. Does not make sense for this to occur and in addition to this, she has a normal WBC, afebrile, normotensive, normal heart rate, weaning her 4 L of oxygen down to room air already. Patient had significantly improved over the 20 to 30 minutes I spent at bedside discussing the case with the nursing staff and the patient. I also spoke with the general surgeon who reviewed her chest x-ray and he noted there were no complications during surgery to account for today's events. Indeed, her wounds from surgery looked very good on exam and were not actively bleeding. Reason For Visit: ACUTE PANCREATITIS Physical Exam Vital Signs: Temp Pulse Resp BP Pulse Ox 98.2 F 126 H 18 146/74 H 97 07/17/19 15:32 07/17/19 15:32 07/17/19 15:32 07/17/19 15:32 07/17/19 15:32 Intake & Output 07/16/19 07/17/19 07/18/19 06:59 06:59 06:59 Intake Total 3000 4789 2827 Output Total 100 Balance 3000 4791 2725 Weight 172.365 kg 172.365 kg General appearance: PRESENT: mild distress, morbidly obese, obese, well- developed, well-nourished Head exam: PRESENT: atraumatic, normocephalic Eye exam: PRESENT: conjunctiva pink Mouth exam: PRESENT: moist Respiratory exam: PRESENT: crackles - At bilateral bases, mild, very limited exam due to habitus. ABSENT: accessory muscle use, rhonchi, tachypnea, unlabored, wheezes Cardiovascular exam: PRESENT: RRR. ABSENT: diastolic murmur, rubs, systolic murmur GI/Abdominal exam: PRESENT: normal bowel sounds, soft. ABSENT: distended, guarding, mass, organolmegaly, rebound, tenderness Extremities exam: PRESENT: pedal edema - Trace Neurological exam: PRESENT: alert, awake, oriented to person, oriented to place, oriented to time, oriented to situation Psychiatric exam: PRESENT: anxious, normal mood Skin exam: PRESENT: dry, intact, warm Results Laboratory Results: 07/16/19 06:32 07/16/19 06:32 07/15/19 07:35 Troponin I < 0.012 Impressions: Abdomen MRI 07/15/19 00:00 IMPRESSION: 1. Mild acute pancreatitis. No focal pseudocyst. No pancreatic ductal dilation. 2. Cholelithiasis. No evidence of acute cholecystitis or choledocholithiasis. 3. Mild hepatic steatosis. Abdomen/Pelvis CT 07/15/19 07:39 IMPRESSION: Acute pancreatitis. Correlation with serum chemistries is recommended. Abdomen Ultrasound 07/15/19 08:56 IMPRESSION: Cholelithiasis. No evidence of acute cholecystitis. Chest X-Ray 07/17/19 00:00 IMPRESSION: Multifocal left mid and basilar airspace disease compatible with pneumonia. Cholangiogram 07/17/19 10:45 IMPRESSION: INTRAOPERATIVE CHOLANGIOGRAM. Assessment and Plan - Diagnosis (1) Acute gallstone pancreatitis Is this a current diagnosis for this admission?: Yes Plan: Patient does have cholelithiasis on sonogram. This may be the cause of pancreatitis. She likely will need an MRI for further evaluation. I will also consult surgery. Patient will be kept n.p.o. She will be placed on IV fluids as well as PPI intravenously. Will monitor for follow her labs 07/17/2019 Went to the OR for cholecystectomy, had some respiratory distress postop which was treated with albuterol and IV Lasix with good effect. Portable chest x-ray showed volume overload versus pneumonia on the left side but she also has mediastinal infiltrate on the right as well consistent with volume overload. (2) CLIFFORD (obstructive sleep apnea) Is this a current diagnosis for this admission?: Yes Plan: Undiagnosed highly likely case of obstructive sleep apnea; per patient she has excessive daytime sleepiness regardless of the hours of sleep she gets, loud snoring, questionable apneic episodes at night, severe somnolence and some mild respiratory distress postop Discussed with patient she needs PSG after discharge For any and all future surgical procedures I recommend she be transitioned to positive pressure from ventilator rather than directly to nasal cannula (3) Hyperglycemia Is this a current diagnosis for this admission?: Yes Plan: Denies prior history of diabetes although her blood sugar was elevated at 200. Will check hemoglobin A1c 07/17/2019 LD, Accu-Tracy (4) Morbid obesity with BMI of 50.0-59.9, adult Is this a current diagnosis for this admission?: Yes Plan: She has been advised on the need to lose weight She loses weight, her lifespan will likely be significantly lessened; strongly advise weight loss under the guidance of a edge polisher and primary care physician after discharge (5) Super obesity Is this a current diagnosis for this admission?: Yes (6) Pancreatitis Is this a current diagnosis for this admission?: Yes - Plan Summary Summary: Follow-up on labs as indicated . plan is for OR for cholecystectomy as per surgery. We will keep patient n.p.o. - Time Time Spent with patient: 25-34 minutes Medications reviewed and adjusted accordingly: Yes Anticipated discharge: Home - Inpatient Certification Based on my medical assessment, after consideration of the patient's comorbidities, presenting symptoms, or acuity I expect that the services needed warrant INPATIENT care.: Yes I certify that my determination is in accordance with my understanding of Medicare's requirements for reasonable and necessary INPATIENT services [42 CFR 412.3e].: Yes Medical Necessity: Significant Comorbidiites Make Outpatient Treatment Too Risky, Need Close Monitoring Due to Risk of Patient Decompensation, Need for IV Antibiotics, Risk of Complication if Not Cared For in Hospital, Risk of Diagnosis Which Will Require Inpatient Eval/Care/Monitoring
[2019-07-17] MEDS ORDERED: GLUCAGON,HUMAN RECOMB 1 MG INJ IM PRN (17:00)
[2019-07-17] MEDS ORDERED: DEXTROSE 40% GEL 15 GM TUBE X 2 PO PRN (17:00)
[2019-07-17] MEDS ORDERED: DEXTROSE 50%-WATER SYRINGE 12.5 GM/25 ML DOSE IV PRN (17:00)
[2019-07-17] MEDS ORDERED: DEXTROSE 40% GEL 15 GM TUBE PO PRN (17:00)
[2019-07-17] MEDS ORDERED: DEXTROSE 50%-WATER SYRINGE 25 GM/50 ML DOSE IV PRN (17:00)
[2019-07-17] MEDS: INSULIN LISPRO 100 UNIT/ML 3 ML VIAL SUBCUT SCH (21:40)
[2019-07-18] MEDS: OXYCODONE-ACETAMINOPHEN 5-325 MG TABLET PO PRN ×2 (07:47→21:26)
[2019-07-18] MEDS: INSULIN LISPRO 100 UNIT/ML 3 ML VIAL SUBCUT SCH ×4 (08:42→22:05)
[2019-07-18] MEDS: MORPHINE SULFATE 10 MG/ML INJ IV PRN ×3 (10:02→20:33)
[2019-07-18] MEDS: PANTOPRAZOLE SODIUM 40 MG VIAL IV SCH (10:02)
[2019-07-18 11:35] LABS: ABSOLUTE LYMPHOCYTES (AUTO) 1.4 10^3/uL (0.5-4.7); ABSOLUTE MONOCYTES (AUTO) 0.7 10^3/uL (0.1-1.4); ABSOLUTE NEUT (AUTO) 7.7 10^3/uL (1.7-8.2); BASOPHILS % (AUTO) 0.5 % (0-2); EOSINOPHILS % (AUTO) 0.2 % (0-6); HEMATOCRIT 33.8 % (36.0-47.0); HEMOGLOBIN 11.6 g/dL (12.0-15.5); LYMPHOCYTES % (AUTO) 13.9 % (13-45); MEAN CORPUSCULAR HEMOGLOBIN 27.2 pg (27.0-33.4); MEAN CORPUSCULAR HGB CONC 34.3 g/dL (32.0-36.0); MEAN CORPUSCULAR VOLUME 79 fl (80-97); MONOCYTES % (AUTO) 7.5 % (3-13); PLATELET COUNT 262 10^3/uL (150-450); RED BLOOD COUNT 4.26 10^6/uL (3.72-5.28); RED CELL DISTRIBUTION WIDTH 16.8 % (11.5-14.0); SEGMENTED NEUTROPHILS % (AUTO) 77.9 % (42-78); TOTAL CELLS COUNTED % (AUTO) 100 %; WHITE BLOOD COUNT 9.8 10^3/uL (4.0-10.5)
[2019-07-18 12:04] LABS: ALBUMIN 3.7 g/dL (3.5-5.0); ALKALINE PHOSPHATASE 98 U/L (38-126); ANION GAP 8 (5-19); ASPARTATE AMINO TRANSFERASE 87 U/L (14-36); BILIRUBIN,DIRECT 0.1 mg/dL (0.0-0.4); BILIRUBIN,TOTAL 0.6 mg/dL (0.2-1.3); BLOOD UREA NITROGEN 9 mg/dL (7-20); CALCIUM 8.7 mg/dL (8.4-10.2); CARBON DIOXIDE 26 mmol/L (22-30); CHLORIDE 102 mmol/L (98-107); GLUCOSE 128 mg/dL (75-110); POTASSIUM 3.8 mmol/L (3.6-5.0); TOTAL PROTEIN 6.6 g/dL (6.3-8.2)
--- NOTE | 2019-07-18 12:12 | PDOC PROGRESS REPORT ---
Subjective Progress Note for:: 07/18/19 Subjective:: 07/17/2019 Called by nursing for patient having difficulties postop today with noted hypoxemia with respiratory failure, severe somnolence, and suspected hemoptysis. I came immediately to bedside and patient had spit some very light pink-tinged saliva onto a napkin but there was no overt yunior blood or hemoptysis that I observed. Likely this was from very mild trauma to her airway during intubation and extubation as would be expected. Her lungs may have had the faintest of crackles at the bases but there was no wheezing or rhonchi. Per nursing, patient had been given 1.5 L fluid intraoperatively and she still had IV fluids running in the room when I saw her. Discontinued IV fluids. Auscultatory exam was extremely limited due to massive body habitus. I reviewed the chest x-ray on the x-ray machine in the room immediately upon completion and noted she had some mediastinal and primarily left-sided infiltrates possibly volume overload. Patient given 20 mg IV Lasix once. It is possible she has developed a pneumonia but this would be strange to have occurred during this timeline of going to surgery normal and coming back with a lung infection. Does not make sense for this to occur and in addition to this, she has a normal WBC, afebrile, normoten sive, normal heart rate, weaning her 4 L of oxygen down to room air already. Patient had significantly improved over the 20 to 30 minutes I spent at bedside discussing the case with the nursing staff and the patient. I also spoke with the general surgeon who reviewed her chest x-ray and he noted there were no complications during surgery to account for today's events. Indeed, her wounds from surgery looked very good on exam and were not actively bleeding. 07/18/2019 Patient doing significantly better today. She only has a mild cough which is nonproductive. She denies any fevers or chest pain or shortness of breath. Her blood pressure is uncontrolled and I have added chlorthalidone and lisinopril. We spoke for a great deal of time about lifestyle improvements she can make in order to help her lose weight. This included my recommendation of a vegan diet and very slow gradual increasing intensity of an exercise regimen. I recommended she request a nutrition consult from her insurance company. Also discussed again that she must have PSG to evaluate her likely CLIFFORD. Otherwise she has no new complaints today. Reason For Visit: ACUTE PANCREATITIS Physical Exam Vital Signs: Temp Pulse Resp BP Pulse Ox 98.4 F 97 20 166/85 H 100 07/18/19 08:32 07/18/19 08:32 07/18/19 08:32 07/18/19 08:32 07/18/19 08:32 Intake & Output 07/17/19 07/18/19 07/19/19 06:59 06:59 06:59 Intake Total 4714 3473 Output Total 101 Balance 4727 1467 Weight 172.365 kg 170.8 kg General appearance: PRESENT: no acute distress, well-developed, well-nourished Head exam: PRESENT: atraumatic, normocephalic Eye exam: PRESENT: conjunctiva pink Mouth exam: PRESENT: moist Respiratory exam: PRESENT: clear to auscultation aryan. ABSENT: rales, rhonchi, wheezes Cardiovascular exam: PRESENT: RRR. ABSENT: diastolic murmur, rubs, systolic murmur GI/Abdominal exam: PRESENT: normal bowel sounds, soft. ABSENT: distended, guarding, mass, organolmegaly, rebound, tenderness Neurological exam: PRESENT: alert, awake, oriented to person, oriented to place, oriented to time, oriented to situation Psychiatric exam: PRESENT: appropriate affect, normal mood Skin exam: PRESENT: dry, intact, warm Results Laboratory Results: 07/18/19 11:14 07/18/19 07/18/19 11:14 11:14 WBC 9.8 RBC 4.26 Hgb 11.6 L Hct 33.8 L MCV 79 L MCH 27.2 MCHC 34.3 RDW 16.8 H Plt Count 262 Seg Neutrophils % 77.9 Sodium Cancelled Potassium Cancelled Chloride Cancelled Carbon Dioxide Cancelled Anion Gap Cancelled BUN Cancelled Creatinine Cancelled Est GFR ( Amer) Cancelled Est GFR (Non-Af Amer) Cancelled Glucose Cancelled Calcium Cancelled 07/15/19 07:35 Troponin I < 0.012 Impressions: Abdomen MRI 07/15/19 00:00 IMPRESSION: 1. Mild acute pancreatitis. No focal pseudocyst. No pancreatic ductal dilation. 2. Cholelithiasis. No evidence of acute cholecystitis or choledocholithiasis. 3. Mild hepatic steatosis. Abdomen/Pelvis CT 07/15/19 07:39 IMPRESSION: Acute pancreatitis. Correlation with serum chemistries is recommended. Abdomen Ultrasound 07/15/19 08:56 IMPRESSION: Cholelithiasis. No evidence of acute cholecystitis. Chest X-Ray 07/17/19 00:00 IMPRESSION: Multifocal left mid and basilar airspace disease compatible with pneumonia. Cholangiogram 07/17/19 10:45 IMPRESSION: INTRAOPERATIVE CHOLANGIOGRAM. Assessment and Plan - Diagnosis (1) Acute gallstone pancreatitis Is this a current diagnosis for this admission?: Yes Plan: Patient does have cholelithiasis on sonogram. This may be the cause of pancreatitis. She likely will need an MRI for further evaluation. I will also consult surgery. Patient will be kept n.p.o. She will be placed on IV fluids as well as PPI intravenously. Will monitor for follow her labs 07/17/2019 Went to the OR for cholecystectomy, had some respiratory distress postop which was treated with albuterol and IV Lasix with good effect. Portable chest x-ray showed volume overload versus pneumonia on the left side but she also has mediastinal infiltrate on the right as well consistent with volume overload. 07/18/2019 Significant improvement from yesterday without any notable respiratory symptoms today. General surgery following. Use oral pain control meds rather than IV if possible (2) CLIFFORD (obstructive sleep apnea) Is this a current diagnosis for this admission?: Yes (3) Hyperglycemia Is this a current diagnosis for this admission?: Yes (4) Morbid obesity with BMI of 50.0-59.9, adult Is this a current diagnosis for this admission?: Yes (5) Super obesity Is this a current diagnosis for this admission?: Yes (6) Pancreatitis Qualifiers: Chronicity: acute Is this a current diagnosis for this admission?: Yes Plan: Due to gallstone which has been removed along with her gallbladder Started on thiazide diuretic though this class of drug can cause pancreatitis, it should not cause problems with her pancreas given the obstruction has been removed by surgery Patient had some mild hyperlipidemia but triglycerides were not high enough to cause pancreatitis - Plan Summary Summary: Follow-up on labs as indicated . plan is for OR for cholecystectomy as per surgery. We will keep patient n.p.o. - Time Time Spent with patient: 15-24 minutes Medications reviewed and adjusted accordingly: Yes Anticipated discharge: Home Within: within 48 hours - Inpatient Certification Based on my medical assessment, after consideration of the patient's comorbidities, presenting symptoms, or acuity I expect that the services needed warrant INPATIENT care.: Yes I certify that my determination is in accordance with my understanding of Medicare's requirements for reasonable and necessary INPATIENT services [42 CFR 412.3e].: Yes Medical Necessity: Significant Comorbidiites Make Outpatient Treatment Too Risky, Need Close Monitoring Due to Risk of Patient Decompensation, Risk of Complication if Not Cared For in Hospital, Risk of Diagnosis Which Will Require Inpatient Eval/Care/Monitoring
--- NOTE | 2019-07-18 13:33 | PDOC PROGRESS REPORT ---
Subjective Progress Note for:: 07/18/19 Reason For Visit: ACUTE PANCREATITIS Physical Exam Vital Signs: Temp Pulse Resp BP Pulse Ox 98.2 F 103 H 20 162/90 H 99 07/18/19 12:53 07/18/19 12:53 07/18/19 12:53 07/18/19 12:53 07/18/19 12:53 Intake & Output 07/17/19 07/18/19 07/19/19 06:59 06:59 06:59 Intake Total 4791 3473 Output Total 101 Balance 4791 3372 Weight 172.365 kg 170.8 kg Results Laboratory Results: 07/18/19 11:14 07/18/19 11:14 07/18/19 07/18/19 07/18/19 11:14 11:14 11:14 WBC 9.8 RBC 4.26 Hgb 11.6 L Hct 33.8 L MCV 79 L MCH 27.2 MCHC 34.3 RDW 16.8 H Plt Count 262 Seg Neutrophils % 77.9 Sodium 136.1 L Cancelled Potassium 3.8 Cancelled Chloride 102 Cancelled Carbon Dioxide 26 Cancelled Anion Gap 8 Cancelled BUN 9 Cancelled Creatinine 0.74 Cancelled Est GFR ( Amer) > 60 Cancelled Est GFR (Non-Af Amer) Cancelled Glucose 128 H Cancelled Calcium 8.7 Cancelled Total Bilirubin 0.6 AST 87 H Alkaline Phosphatase 98 Total Protein 6.6 Albumin 3.7 Lipase 121.6 07/15/19 07:35 Troponin I < 0.012 Impressions: Abdomen MRI 07/15/19 00:00 IMPRESSION: 1. Mild acute pancreatitis. No focal pseudocyst. No pancreatic ductal dilation. 2. Cholelithiasis. No evidence of acute cholecystitis or choledocholithiasis. 3. Mild hepatic steatosis. Abdomen/Pelvis CT 07/15/19 07:39 IMPRESSION: Acute pancreatitis. Correlation with serum chemistries is recommended. Abdomen Ultrasound 07/15/19 08:56 IMPRESSION: Cholelithiasis. No evidence of acute cholecystitis. Chest X-Ray 07/17/19 00:00 IMPRESSION: Multifocal left mid and basilar airspace disease compatible with pneumonia. Cholangiogram 07/17/19 10:45 IMPRESSION: INTRAOPERATIVE CHOLANGIOGRAM. Assessment & Plan - Diagnosis (1) Acute gallstone pancreatitis Is this a current diagnosis for this admission?: Yes - Plan Summary Plan Summary: This is a 38-year-old female status post laparoscopic cholecystectomy for biliary pancreatitis. The patient is doing well today. Her lipase, LFTs, and white count are normal. She is tolerating regular diet. She is okay for discharge from a surgical standpoint. No lifting greater than 10 pounds x 2 weeks. Follow-up with [facility] in 7 to 10 days. Surgery will sign off at this time. Please renotify with any questions or concerns.
[2019-07-18] MEDS: LISINOPRIL 5 MG TABLET PO SCH (13:50)
[2019-07-18] MEDS ORDERED: FUROSEMIDE INJ/PF 20 MG/2 ML SDV IV ONE (15:00)
[2019-07-18] MEDS: CHLORTHALIDONE 25 MG TABLET PO SCH (15:25)
[2019-07-19] MEDS: OXYCODONE-ACETAMINOPHEN 5-325 MG TABLET PO PRN (04:06)
[2019-07-19] MEDS: INSULIN LISPRO 100 UNIT/ML 3 ML VIAL SUBCUT SCH ×2 (08:29→12:22)
[2019-07-19] MEDS: CHLORTHALIDONE 25 MG TABLET PO SCH (10:35)
[2019-07-19] MEDS: PANTOPRAZOLE SODIUM 40 MG VIAL IV SCH (10:36)
[2019-07-19] MEDS: LISINOPRIL 5 MG TABLET PO SCH (10:36)
[2019-07-19 13:12] VITALS: BP 142/67
--- NOTE | 2019-07-19 13:50 | PDOC DISCHARGE SUMMARY ---
Impression - Admit/DC Date/PCP Admission Date/Primary Care Provider: 07/15/19 11:46 KRYSTLE LION PA-C Discharge Date: 07/19/19 - Discharge Diagnosis (1) Acute gallstone pancreatitis Is this a current diagnosis for this admission?: Yes (2) CLIFFORD (obstructive sleep apnea) Is this a current diagnosis for this admission?: Yes (3) Hyperglycemia Is this a current diagnosis for this admission?: Yes (4) Morbid obesity with BMI of 50.0-59.9, adult Is this a current diagnosis for this admission?: Yes (5) Super obesity Is this a current diagnosis for this admission?: Yes (6) Pancreatitis Is this a current diagnosis for this admission?: Yes - Assessment Summary: Follow-up on labs as indicated . plan is for OR for cholecystectomy as per surgery. We will keep patient n.p.o. - Additional Information Resuscitation Status: Full Code Discharge Diet: As Tolerated Discharge Activity: Activity As Tolerated Referrals: KRYSTLE LION PA-C [Primary Care Provider] - Follow up as needed Prescriptions: Chlorthalidone [Hygroton 25 mg Tablet] 25 mg PO DAILY #30 tablet Lisinopril [Prinivil 10 mg Tablet] 10 mg PO DAILY #30 tablet Home Medications: Chlorthalidone [Hygroton 25 mg Tablet] 25 mg PO DAILY #30 tablet 07/19/19 Lisinopril [Prinivil 10 mg Tablet] 10 mg PO DAILY #30 tablet 07/19/19 History of Present Illiness History of Present Illness: Per H&P: "MORRIS JAIME is a 38 year old female Who presents with acute onset of abdominal pain associated with nausea and vomiting. This pain started yesterday. She denied any prior episode of such pa in. She denies any dysuria frequency fever diarrhea or any other pertinent symptoms. Patient denies any alcohol use, drug use and she denies any prior episodes of pancreatitis. The emergency room she was found to have a lipase of 24,000. Is on no medications. She is morbidly obese but otherwise denies any other medical history. CT scan of the abdomen done reveals findings consistent with pancreatitis. She ultimately had an abdominal sonogram done and at this is consistent with cholelithiasis." Hospital Course Hospital Course: Patient in for acute pancreatitis due to retained gallstone, underwent cholecystectomy with gallstone removal, resolution of abdominal pain/vomiting and significant continuous improvement in her laboratory values thereafter. She did have an episode of somnolence and mild hypoxemic respiratory failure immediately after surgery which is likely due to anesthesia combined with her very likely underlying CLIFFORD which is undiagnosed and untreated. She is super morbidly obese and it has been recommended by me that she have a sleep study and be referred to a reclaimer to help her lose weight. On day of discharge, she states she has no pain. She does note having some very mild blood-tinged sputum which is been present since she was extubated after surgery. She states this occurs 1-2 times per day and is not yunior bleeding but rather blood mixed in with mucus. She was instructed to use [id number] cough suppressant and to refrain from coughing forcefully. Hemoglobin stable. She agreed with the plan and will be discharged home in stable condition. Per general surgery: "This is a 38-year-old female status post laparoscopic cholecystectomy for biliary pancreatitis. The patient is doing well today. Her lipase, LFTs, and white count are normal. She is tolerating regular diet. She is okay for discharge from a surgical standpoint. No lifting greater than 10 pounds x 2 weeks. Follow-up with [facility] in 7 to 10 days. Surgery will sign off at this time. Please renotify with any questions or concerns." Physical Exam Vital Signs: Temp Pulse Resp BP Pulse Ox 98.3 F 88 18 142/67 H 99 07/19/19 13:10 07/19/19 13:10 07/19/19 13:10 07/19/19 13:10 07/19/19 13:10 Intake & Output 07/18/19 07/19/19 07/20/19 06:59 06:59 06:59 Intake Total 3473 2170 Output Total 101 Balance 3372 2170 Weight 170.8 kg 176.7 kg General appearance: PRESENT: no acute distress, well-developed, well-nourished Head exam: PRESENT: atraumatic, normocephalic Eye exam: PRESENT: conjunctiva pink, EOMI. ABSENT: scleral icterus Mouth exam: PRESENT: moist Respiratory exam: PRESENT: clear to auscultation aryan. ABSENT: rales, rhonchi, wheezes Cardiovascular exam: PRESENT: RRR. ABSENT: diastolic murmur, rubs, systolic murmur GI/Abdominal exam: PRESENT: normal bowel sounds, soft. ABSENT: distended, guarding, mass, organolmegaly, rebound, tenderness Rectal exam: PRESENT: deferred Musculoskeletal exam: PRESENT: ambulatory Neurological exam: PRESENT: alert, awake, oriented to person, oriented to place, oriented to time, oriented to situation Psychiatric exam: PRESENT: appropriate affect, normal mood Skin exam: PRESENT: dry, intact, warm Results Laboratory Results: WBC 9.8 10^3/uL (4.0-10.5) 07/18/19 11:14 RBC 4.26 10^6/uL (3.72-5.28) 07/18/19 11:14 Hgb 11.6 g/dL (12.0-15.5) L 07/18/19 11:14 Hct 33.8 % (36.0-47.0) L 07/18/19 11:14 MCV 79 fl (80-97) L 07/18/19 11:14 MCH 27.2 pg (27.0-33.4) 07/18/19 11:14 MCHC 34.3 g/dL (32.0-36.0) 07/18/19 11:14 RDW 16.8 % (11.5-14.0) H 07/18/19 11:14 Plt Count 262 10^3/uL (150-450) 07/18/19 11:14 Lymph % (Auto) 13.9 % (13-45) 07/18/19 11:14 [place] % (Auto) 7.5 % (3-13) 07/18/19 11:14 Eos % (Auto) 0.2 % (0-6) 07/18/19 11:14 Baso % (Auto) 0.5 % (0-2) 07/18/19 11:14 Absolute Neuts (auto) 7.7 10^3/uL (1.7-8.2) 07/18/19 11:14 Absolute Lymphs (auto) 1.4 10^3/uL (0.5-4.7) 07/18/19 11:14 Absolute Monos (auto) 0.7 10^3/uL (0.1-1.4) 07/18/19 11:14 Absolute Eos (auto) 0.0 10^3/uL (0.0-0.6) 07/18/19 11:14 Absolute Basos (auto) 0.0 10^3/uL (0.0-0.2) 07/18/19 11:14 Seg Neutrophils % 77.9 % (42-78) 07/18/19 11:14 Sodium 136.1 mmol/L (137-145) L 07/18/19 11:14 Sodium Cancelled 07/18/19 11:14 Potassium 3.8 mmol/L (3.6-5.0) 07/18/19 11:14 Potassium Cancelled 07/18/19 11:14 Chloride 102 mmol/L (98-107) 07/18/19 11:14 Chloride Cancelled 07/18/19 11:14 Carbon Dioxide 26 mmol/L (22-30) 07/18/19 11:14 Carbon Dioxide Cancelled 07/18/19 11:14 Anion Gap 8 (5-19) 07/18/19 11:14 Anion Gap Cancelled 07/18/19 11:14 BUN 9 mg/dL (7-20) 07/18/19 11:14 BUN Cancelled 07/18/19 11:14 Creatinine 0.74 mg/dL (0.52-1.25) 07/18/19 11:14 Creatinine Cancelled 07/18/19 11:14 Est GFR ( Amer) > 60 (>60) 07/18/19 11:14 Est GFR ( Amer) Cancelled 07/18/19 11:14 Est GFR (Non-Af Amer) Cancelled 07/18/19 11:14 Est GFR (MDRD) Non-Af > 60 (>60) 07/18/19 11:14 Est GFR (MDRD) Non-Af Cancelled 07/18/19 11:14 Glucose 128 mg/dL (75-110) H 07/18/19 11:14 Glucose Cancelled 07/18/19 11:14 POC Glucose 118 mg/dL (70-110) H 07/19/19 11:41 Hemoglobin A1c % 6.3 % (4.7-6.0) H 07/16/19 06:32 Calcium 8.7 mg/dL (8.4-10.2) 07/18/19 11:14 Calcium Cancelled 07/18/19 11:14 Magnesium 2.0 mg/dL (1.6-2.3) 07/16/19 06:32 Total Bilirubin 0.6 mg/dL (0.2-1.3) 07/18/19 11:14 Direct Bilirubin 0.1 mg/dL (0.0-0.4) 07/18/19 11:14 Neonat Total Bilirubin Not Reportable 07/18/19 11:14 Neonat Direct Bilirubin Not Reportable 07/18/19 11:14 Neonat Indirect Bili Not Reportable 07/18/19 11:14 AST 87 U/L (14-36) H 07/18/19 11:14 ALT 249 U/L (<35) H 07/18/19 11:14 Alkaline Phosphatase 98 U/L (38-126) 07/18/19 11:14 Troponin I < 0.012 ng/mL 07/15/19 07:35 Total Protein 6.6 g/dL (6.3-8.2) 07/18/19 11:14 Albumin 3.7 g/dL (3.5-5.0) 07/18/19 11:14 Triglycerides 56 mg/dL (<150) 07/16/19 06:32 Cholesterol 162.58 mg/dL (0-200) 07/16/19 06:32 LDL Cholesterol Direct 82 mg/dL (<100) 07/16/19 06:32 VLDL Cholesterol 11.0 mg/dL (10-31) 07/16/19 06:32 HDL Cholesterol 67 mg/dL (>40) 07/16/19 06:32 Amylase 720 U/L (30-110) H 07/16/19 06:32 Lipase 121.6 U/L (23-300) 07/18/19 11:14 EGFR Cancelled 07/18/19 11:14 Urine Color YELLOW 07/15/19 07:35 Urine Appearance CLEAR 07/15/19 07:35 Urine pH 8.0 (5.0-9.0) 07/15/19 07:35 Ur Specific [place] 1.009 07/15/19 07:35 Urine Protein NEGATIVE mg/dL (NEGATIVE) 07/15/19 07:35 Urine Glucose (UA) 50 mg/dL (NEGATIVE) H 07/15/19 07:35 Urine Ketones NEGATIVE mg/dL (NEGATIVE) 07/15/19 07:35 Urine Blood NEGATIVE (NEGATIVE) 07/15/19 07:35 Urine Nitrite (Reflex) NEGATIVE (NEGATIVE) 07/15/19 07:35 Urine Bilirubin NEGATIVE (NEGATIVE) 07/15/19 07:35 Urine Urobilinogen NEGATIVE mg/dL (<2.0) 07/15/19 07:35 Leukocyte Esterase Rfl NEGATIVE (NEGATIVE) 07/15/19 07:35 Urine RBC (Auto) 1 /HPF 07/15/19 07:35 Urine Bacteria (Auto) 2+ /HPF 07/15/19 07:35 Urine WBC (Reflex) 1 /HPF 07/15/19 07:35 Squamous Epi Cells Auto 3 /HPF 07/15/19 07:35 Urine Mucus (Auto) RARE /LPF 07/15/19 07:35 Urine Ascorbic Acid NEGATIVE (NEGATIVE) 07/15/19 07:35 Urine HCG, Qual NEGATIVE (NEGATIVE) 07/15/19 07:35 Urine Opiates Screen NEGATIVE 07/15/19 07:35 Urine Methadone Screen NEGATIVE 07/15/19 07:35 Ur Barbiturates Screen NEGATIVE 07/15/19 07:35 Ur Phencyclidine Scrn NEGATIVE 07/15/19 07:35 Ur Amphetamines Screen NEGATIVE 07/15/19 07:35 U Benzodiazepines Scrn NEGATIVE 07/15/19 07:35 Urine Cocaine Screen NEGATIVE 07/15/19 07:35 U Marijuana (THC) Screen NEGATIVE 07/15/19 07:35 07/15/19 07:35 Troponin I < 0.012 Impressions: Abdomen MRI 07/15/19 00:00 IMPRESSION: 1. Mild acute pancreatitis. No focal pseudocyst. No pancreatic ductal dilation. 2. Cholelithiasis. No evidence of acute cholecystitis or choledocholithiasis. 3. Mild hepatic steatosis. Abdomen/Pelvis CT 07/15/19 07:39 IMPRESSION: Acute pancreatitis. Correlation with serum chemistries is recommended. Abdomen Ultrasound 07/15/19 08:56 IMPRESSION: Cholelithiasis. No evidence of acute cholecystitis. Chest X-Ray 07/17/19 00:00 IMPRESSION: Multifocal left mid and basilar airspace disease compatible with pneumonia. Cholangiogram 07/17/19 10:45 IMPRESSION: INTRAOPERATIVE CHOLANGIOGRAM. Plan Plan of Treatment: Follow-up with PCP Follow-up with general surgery Use [id number] cough medicine as directed and avoid coughing forcefully. Return to ER immediately if coughing up large amounts of yunior blood. Follow-up with reclaimer regarding vegan diet Get sleep study outpatient Time Spent: Greater than 30 Minutes Stroke Is this a Stroke Patient?: No Acute Heart Failure - Is this a Heart Failure Patient?: No
[2019-07-20] MEDS ORDERED: LISINOPRIL 10 MG TABLET PO SCH (10:00)
[2019-07-20] MEDS ORDERED: CHLORTHALIDONE 25 MG TABLET PO SCH (10:00)
== END 2019-07-19 13:35 | disposition home or self-care (01) | DRG 417 ==
LOC: ER 07:22 → EH 11:46 → 4N 16:26 → 2N 19:43 → 4S 07-17 18:42
PROVIDERS: ADMIT Internal Medicine; ATTEND Internal Medicine
PROC: BF0CYZZ Plain Radiography of Hepatobiliary System, All using Other Contrast (ICD-10-PCS; 2019-07-17)
PROC: 0FT44ZZ Resection of Gallbladder, Percutaneous Endoscopic Approach (ICD-10-PCS; principal; 2019-07-17 10:15)
DX: K80.20 Calculus of gallbladder without cholecystitis without obstruction (principal); K85.10 Biliary acute pancreatitis without necrosis or infection; J95.821 Acute postprocedural respiratory failure; Z68.43 Body mass index [BMI] 50.0-59.9, adult; R04.2 Hemoptysis; R73.9 Hyperglycemia, unspecified; G47.33 Obstructive sleep apnea (adult) (pediatric); E66.01 Morbid (severe) obesity due to excess calories; Y83.6 Removal of other organ (partial) (total) as the cause of abnormal reaction of the patient, or of later complication, without mention of misadventure at the time of the procedure; Y92.230 Patient room in hospital as the place of occurrence of the external cause
CPT/HCPCS: 36415; 71045; 74177; 74181; 74300; 76705; 790; 80053; 80061; 80307; 81001; 81025; 82150; 82962; 83036; 83690; 83735; 84484; 85025; 88304; 93005; 93010; 94640; 96361; 96374; 96376; 99285; C9113; J0131; J0330; J0360; J0690; J1100; J1170; J1885; J1940; J2250; J2270; J2405; J2704; J2710; J3010; J3490; J7030; Q9967